=== PATIENT | female | born 1990 | race Native Hawaiian/Other Pacific Islander ===

== ENCOUNTER 2016-11-26 08:53 | Emergency (ER) | payer OTHER ==
--- NOTE | 2016-11-30 14:46 | ER ---
ADMIT: 11/26/2016 RM/LOC: [facility] MR#: [id number] [address] [id number] SHILPA SARAVIA [address] [place] [address] Emergency Room Report SEX: F AGE: 25 : 1990 DATE: 11/26/2016 ADDENDUM: CHIEF COMPLAINT: Laceration. HISTORY OF PRESENT ILLNESS: This is a 25-year-old that was cut on Monday, it sound like by a box insurance verification rep knife. She has been in snf for a couple of days now. They were concerned about the laceration, so brought her to the emergency room. The cut is now 4 to 5 days old. I told her at this time, it is already granulating and healing on its own. I am not going to do a suture repair this late, told to continue the antibiotic ointment daily to the wound. I told her if she is not around people, she can definitely keep it open to air to help it dry out, otherwise keep it covered if she is in any kind of dirty environment or around people. CLINICAL IMPRESSION: Laceration to left forearm. YANI Mathew / Mick Austin MD / panda JOB #: [id number] CC: Mick Austin MD, Attending Physician Alistair Carreno MD, Family Physician
== END 2016-11-26 09:30 | disposition home or self-care (01) ==
LOC: ER 08:53
DX: S51.812A Laceration without foreign body of left forearm, initial encounter (principal); F17.210 Nicotine dependence, cigarettes, uncomplicated; Z98.890 Other specified postprocedural states; X58.XXXA Exposure to other specified factors, initial encounter